=== PATIENT | female | born 1965 | race Caucasian/White ===

== ENCOUNTER 2017-09-30 12:37 | Day surgery (SDC) | payer OTHER ==
[2017-09-30] MEDS ORDERED: LACTATED RINGERS 1,000 ML IV ONE (13:00)
[2017-09-30] MEDS ORDERED: fentaNYL 100 MCG/2 ML VIAL IVP ONE (13:33)
[2017-09-30] MEDS ORDERED: MIDAZOLAM 2 MG/2 ML VIAL IVP ONE (13:33)
[2017-09-30 14:36] VITALS: BP 116/70
== END 2017-09-30 12:38 | disposition home or self-care (01) ==
LOC: SDS 12:37
PROVIDERS: ATTEND Surgery
PROC: 0DJD8ZZ Inspection of Lower Intestinal Tract, Via Natural or Artificial Opening Endoscopic (ICD-10-PCS; principal; 2017-09-30 13:45)
DX: Z12.11 Encounter for screening for malignant neoplasm of colon (principal); K57.30 Diverticulosis of large intestine without perforation or abscess without bleeding; Z86.010 Personal history of colon polyps; Z80.0 Family history of malignant neoplasm of digestive organs; I10 Essential (primary) hypertension; Z87.891 Personal history of nicotine dependence
CPT/HCPCS: 45378; J7120